=== PATIENT | male | born 1970 | race African-American/Black ===

== ENCOUNTER 2021-05-09 13:05 | Inpatient (IN) | payer OTHER, MEDICARE ==
[2021-05-09 14:05] LABS: Hemoglobin 7.2 g/dL (13.5-17.5); Mean Corpuscular HGB CONC 32.9 g/dL (32.0-36.0); Mean Corpuscular Hemoglobin 32.1 pg (27.0-33.0); Mean Corpuscular Volume 97.8 fl (81.2-95.1); Mean Platelet Volume 11.3 fl (7.4-10.4); Platelet Count 145 10x3/uL (150-450); RBC Distribution Width 16.3 % (11.5-14.5); Red Blood Cell (RBC) Count 2.24 10x6/uL (4.32-5.72); White Blood Cell (WBC) Count 7.5 10x3/uL (3.5-10.5)
[2021-05-09 14:27] LABS: Anion Gap 15 mmol/L (10-20); BUN (Urea Nitrogen) 78 mg/dL (8.4-25.7); Calc. Creatinine Clearance 0 mL/min (70-130); Calcium 6.4 mg/dL (7.8-10.44); Chloride 120 mmol/L (98-107); Glucose 116 mg/dL (70-105); Potassium 4.8 mmol/L (3.5-5.1); Sodium 138 mmol/L (136-145)
[2021-05-09 14:29] LABS: Carbon Dioxide 8 mmol/L (22-29)
[2021-05-09 14:42] LABS: CKMB 6.8 ng/mL (0-6.6)
[2021-05-09 14:53] LABS: MDiff Complete? YES
[2021-05-09 14:57] LABS: Myelocyte 1 % (0-0); Nucleated RBC 2 % (0)
[2021-05-09 15:07] LABS: Band 2 % (5-11); Eosinophils 1 % (0-10); Lymphocytes 4 % (21-51); Neutrophil 92 % (42-75); Reactive Lymphocytes 1 % (0-10)
[2021-05-09 15:10] LABS: Vacuoles SLIGHT
[2021-05-09] MEDS ORDERED: Loperamide HCl 2 MG CAP PO PRN (16:00)
[2021-05-09] MEDS ORDERED: Ondansetron PF 4 MG/2 ML Vial IVP PRN (16:00)
[2021-05-09 17:17] LABS: Troponin I 0.029 ng/mL (< 0.028)
[2021-05-09] MEDS ORDERED: Prevnar 13-Val Conj/PF 0.5 ML SYRINGE IM ONE (17:45)
[2021-05-09] MEDS ORDERED: FLU VACC QS2021-22(6MOS UP)/PF 60 MCG/0.5 ML SYRINGE IM ONE (17:45)
[2021-05-09] MEDS: Sodium Bicarbonate 50 MEQ in Sodium Chloride 0.45% 1,000 ML IV SCH ×2 (17:47→18:23)
[2021-05-09] MEDS ORDERED: Sodium Bicarbonate 150 MEQ in Dextrose 5% in Water 1,000 ML IV SCH (19:15)
[2021-05-09] MEDS: Loperamide HCl 2 MG CAP PO SCH (20:00)
[2021-05-09] MEDS: Sodium Bicarbonate 75 MEQ, Admixture Fee 1 EACH in Dextrose 5% in Water 500 ML IV SCH (20:02)
[2021-05-09] MEDS: Albumin 25% 25 GM/100 ML BOT IVPB SCH (20:03)
[2021-05-09] MEDS: Heparin 5,000 UNITS/ML VIAL SC SCH (20:03)
[2021-05-09 20:36] LABS: Phosphorus 2.9 mg/dL (2.3-4.7)
[2021-05-09] MEDS: Pancrelipase DR 12,000 1 CAP PO SCH (20:36)
[2021-05-09 20:38] LABS: CK (CPK) 982 U/L (30-200); Magnesium 1.3 mg/dL (1.6-2.6)
[2021-05-10] MEDS: Sodium Bicarbonate 75 MEQ, Admixture Fee 1 EACH in Dextrose 5% in Water 500 ML IV SCH ×9 (00:16→23:47)
[2021-05-10] MEDS: Loperamide HCl 2 MG CAP PO SCH ×4 (00:19→18:17)
[2021-05-10] MEDS: Albumin 25% 25 GM/100 ML BOT IVPB SCH ×3 (00:19→11:53)
[2021-05-10] MEDS: Acetaminophen 325 MG TAB PO PRN ×2 (00:47→11:52)
[2021-05-10 04:00] LABS: Hemoglobin 6.2 g/dL (13.5-17.5); Mean Corpuscular HGB CONC 33.7 g/dL (32.0-36.0); Mean Corpuscular Hemoglobin 31.8 pg (27.0-33.0); Mean Corpuscular Volume 94.4 fl (81.2-95.1); Mean Platelet Volume 11.3 fl (7.4-10.4); Platelet Count 145 10x3/uL (150-450); RBC Distribution Width 15.7 % (11.5-14.5); Red Blood Cell (RBC) Count 1.95 10x6/uL (4.32-5.72); White Blood Cell (WBC) Count 7.2 10x3/uL (3.5-10.5)
[2021-05-10 04:14] LABS: MDiff Complete? YES
[2021-05-10 04:16] LABS: Anion Gap 15 mmol/L (10-20); BUN (Urea Nitrogen) 68 mg/dL (8.4-25.7); Calc. Creatinine Clearance 9 mL/min (70-130); Calcium 7.1 mg/dL (7.8-10.44); Carbon Dioxide 12 mmol/L (22-29); Chloride 119 mmol/L (98-107); Potassium 3.5 mmol/L (3.5-5.1); Sodium 142 mmol/L (136-145)
[2021-05-10 04:22] LABS: Glucose 33 mg/dL (70-105)
[2021-05-10 04:23] LABS: Band 44 % (5-11); Lymphocytes 4 % (21-51); Metamyelocyte 2 % (0-0); Monocytes 1 % (0-10); Neutrophil 49 % (42-75); Nucleated RBC 3 % (0)
[2021-05-10 04:27] LABS: Reflex for Review?? YES
[2021-05-10 04:29] LABS: Platelet Morphology Comment Appears Adequate
[2021-05-10 04:30] LABS: RBC Morphology Normal
[2021-05-10] MEDS ORDERED: Dextrose 50% Abboject 50 ML SYRINGE SLOW IVP SCH (04:30)
[2021-05-10] MEDS: Heparin 5,000 UNITS/ML VIAL SC SCH ×3 (07:43→20:48)
[2021-05-10] MEDS: Tamsulosin HCl 0.4 MG CAP PO SCH (08:26)
[2021-05-10] MEDS: Pancrelipase DR 12,000 1 CAP PO SCH ×3 (08:26→16:33)
[2021-05-10] MEDS ORDERED: Opium Tincture 10% (1ml Charge) PO SCH ×2 (09:00→13:00)
[2021-05-10] MEDS ORDERED: Magnesium Sulfate 4 GM in Sodium Chloride 0.9% 250 ML 250 ML IVPB SCH (09:00)
[2021-05-10 09:49] LABS: Bilirubin Neg (Negative); Blood, Urine 250 (Negative); Clarity Clear (Clear); Glucose, Urine (Dipstick) Normal (Negative); Ketone, Urine Negative (Negative); Leukocyte 500 (Negative); Nitrite Positive (Negative); Protein, Urine (Dipstick) 100 mg/dl (Neg-Trace); Urobilinogen Normal mg/dL (Less than 2)
[2021-05-10] MEDS: Potassium Bicarbonate/Cit Ac 20 MEQ TAB PO SCH ×2 (10:04→20:47)
[2021-05-10 10:11] LABS: Bacteria/HPF 3+ HPF (None Seen); Squamous Epithelial 0-3 HPF (0-3); Yeast-Budding 2+ HPF (None Seen); Yeast-Hyphae 1+ HPF (None Seen)
[2021-05-10 10:13] LABS: Creatinine, Urine 54.17 mg/dL (63-166); Urine Culture Reflex Yes Yes
[2021-05-10] MEDS ORDERED: Dextrose 50% Abboject 50 ML SYRINGE ONE (12:08)
[2021-05-10] MEDS ORDERED: Aluminum & Magnesium Hydroxide 60 ML, diphenhydrAMINE 150 MG, Lidocaine 2% Viscous Solu... SSW PRN (13:04)
[2021-05-10] MEDS ORDERED: Dextrose 5% in Water 1,000 ML IV PRN (13:04)
[2021-05-10] MEDS ORDERED: Amino Acids 4.25 %/Dextrose 5% 2,000 ML IV SCH (13:30)
[2021-05-10] MEDS: HYDROcodone/Acetaminophen 5/325 mg Tablet PO PRN ×2 (16:52→23:17)
[2021-05-11] MEDS: Loperamide HCl 2 MG CAP PO SCH ×4 (02:01→20:58)
[2021-05-11] MEDS: Sodium Bicarbonate 75 MEQ, Admixture Fee 1 EACH in Dextrose 5% in Water 500 ML IV SCH ×5 (02:02→20:58)
[2021-05-11] MEDS: Dextrose 50% Abboject 50 ML SYRINGE SLOW IVP PRN (02:45)
[2021-05-11] MEDS ORDERED: Dextrose 5% in Water 1,000 ML IV PRN (02:50)
[2021-05-11 04:08] LABS: Mean Corpuscular HGB CONC 34.2 g/dL (32.0-36.0); Mean Corpuscular Volume 90.7 fl (81.2-95.1); Mean Platelet Volume 9.7 fl (7.4-10.4); Platelet Count 148 10x3/uL (150-450); RBC Distribution Width 17.3 % (11.5-14.5); Red Blood Cell (RBC) Count 2.58 10x6/uL (4.32-5.72); White Blood Cell (WBC) Count 13.4 10x3/uL (3.5-10.5)
[2021-05-11 04:16] LABS: Anion Gap 20 mmol/L (10-20); BUN (Urea Nitrogen) 66 mg/dL (8.4-25.7); Calc. Creatinine Clearance 9 mL/min (70-130); Calcium 7.4 mg/dL (7.8-10.44); Carbon Dioxide 15 mmol/L (22-29); Chloride 108 mmol/L (98-107); Glucose 86 mg/dL (70-105); Sodium 140 mmol/L (136-145)
[2021-05-11 04:23] LABS: MDiff Complete? YES
[2021-05-11 04:32] LABS: Band 47 % (5-11); Eosinophils 1 % (0-10); Lymphocytes 5 % (21-51); Metamyelocyte 6 % (0-0); Monocytes 1 % (0-10); Neutrophil 40 % (42-75); Nucleated RBC 4 % (0)
[2021-05-11 04:34] LABS: Platelet Morphology Comment Appears Adequate
[2021-05-11 04:35] LABS: RBC Morphology Normal
[2021-05-11 04:57] VITALS: BMI 17.2
[2021-05-11] MEDS ORDERED: Potassium Chloride 20 MEQ TAB PO SCH (05:30)
[2021-05-11 06:01] LABS: Phosphorus 2.4 mg/dL (2.3-4.7)
[2021-05-11] MEDS: Tamsulosin HCl 0.4 MG CAP PO SCH (10:41)
[2021-05-11] MEDS: Pancrelipase DR 12,000 1 CAP PO SCH ×3 (10:41→17:49)
[2021-05-11] MEDS: Heparin 5,000 UNITS/ML VIAL SC SCH (10:41)
[2021-05-11] MEDS ORDERED: Norepinephrine 8 MG/0.9% NS 250 ML ONE (11:59)
[2021-05-11 12:47] LABS: Actual Bicarbonate (HCO3a) 15.5 mEq/L (22-28); Base Excess (BEa) -11.1 mEq/L (-2.0 to +3.0); CO2 Tension 38.4 mmHg (35.0-45.0); Calcium, Ionized (arterial) 1.08 mmol/L (1.12-1.30); Carboxyhemoglobin (COHb) 0.7 gm% (0.0-3.0); Hemoglobin (Hb) 5.8 g/dL (14.0-18.0); O2 Tension (PaO2), arterial 63.6 mmHg (80.0-100.0); Puncture Site RRA; pH, Arterial 7.22 (7.35-7.45)
[2021-05-11 12:47] LABS: Hemoglobin 6.8 g/dL (13.5-17.5); Mean Corpuscular HGB CONC 33.5 g/dL (32.0-36.0); Mean Corpuscular Hemoglobin 31.6 pg (27.0-33.0); Mean Corpuscular Volume 94.4 fl (81.2-95.1); Mean Platelet Volume 10.9 fl (7.4-10.4); Platelet Count 170 10x3/uL (150-450); RBC Distribution Width 17.9 % (11.5-14.5); Red Blood Cell (RBC) Count 2.15 10x6/uL (4.32-5.72); White Blood Cell (WBC) Count 19.1 10x3/uL (3.5-10.5)
[2021-05-11 12:57] LABS: Lactic Acid 9.1 mmol/L (0.5-2.2)
[2021-05-11 12:59] LABS: ALT (SGPT) 54 U/L (8-55); AST (SGOT) 420 U/L (5-34); Albumin 1.9 g/dL (3.5-5.0); Alkaline Phosphatase 387 U/L (40-110); Anion Gap 21 mmol/L (10-20); BUN (Urea Nitrogen) 68 mg/dL (8.4-25.7); Bilirubin, Total 0.3 mg/dL (0.2-1.2); Calc. Creatinine Clearance 9 mL/min (70-130); Calcium 7.3 mg/dL (7.8-10.44); Carbon Dioxide 17 mmol/L (22-29); Chloride 105 mmol/L (98-107); Globulin 2.9 g/dL (2.4-3.5); Potassium 3.9 mmol/L (3.5-5.1); Protein, Total 4.8 g/dL (6.0-8.3); Sodium 139 mmol/L (136-145)
[2021-05-11 13:00] LABS: Troponin I 0.075 ng/mL (< 0.028)
[2021-05-11] MEDS ORDERED: Lorazepam 2 MG/ML VIAL SLOW IVP PRN (13:00)
[2021-05-11] MEDS ORDERED: Fentanyl BOLUS 250 ML IVPB PRN (13:00)
[2021-05-11] MEDS ORDERED: Morphine 2 MG/ML VIAL SLOW IVP PRN (13:00)
[2021-05-11] MEDS ORDERED: Propofol BOLUS 1,000 MG/100 ML VIAL IV PRN (13:00)
[2021-05-11] MEDS ORDERED: DISCONTINUE PREVIOUS NARCOTIC PAIN MEDICATIONS AND BENZODIAZEPINES FS SCH (13:00)
[2021-05-11 13:05] LABS: Glucose 22 mg/dL (70-105)
[2021-05-11 13:11] LABS: MDiff Complete? YES
[2021-05-11 13:16] LABS: Band 24 % (5-11); Eosinophils 2 % (0-10); Lymphocytes 24 % (21-51); Metamyelocyte 2 % (0-0); Monocytes 1 % (0-10); Neutrophil 46 % (42-75); Nucleated RBC 2 % (0)
[2021-05-11 13:24] LABS: Ovalocytes SLIGHT = 2-5 cells (100X) (0-1/hpf)
[2021-05-11 13:25] LABS: Large Platelets SLIGHT; Platelet Morphology Comment Appears Adequate
[2021-05-11] MEDS ORDERED: Meropenem 1 GM in Sodium Chloride 0.9% 100 ML IVPB SCH ×2 (13:45→14:00)
[2021-05-11] MEDS ORDERED: Vancomycin 1 GM in Premix Bag 1 BAG IVPB SCH (14:00)
[2021-05-11] MEDS ORDERED: Vancomycin HCl 1 GM in Sodium Chloride 0.9% 250 ML 250 ML IVPB SCH (14:15)
[2021-05-11] MEDS: Potassium Phosphate 30 MMOL, Admixture Fee 1 EACH in Sodium Chloride 0.9% 250 ML 250 ML IVPB SCH ×2 (15:00→20:57)
[2021-05-11 15:15] LABS: CKMB 5.7 ng/mL (0-6.6)
[2021-05-11] MEDS: Albumin 25% 25 GM/100 ML BOT IVPB SCH ×2 (15:22→15:47)
[2021-05-11] MEDS: Meropenem 500 MG in Sodium Chloride 0.9% 100 ML IVPB SCH (21:07)
[2021-05-12] MEDS: Albumin 25% 25 GM/100 ML BOT IVPB SCH (00:12)
[2021-05-12] MEDS: Dextrose 50% Abboject 50 ML SYRINGE SLOW IVP PRN ×2 (00:13→08:21)
[2021-05-12] MEDS: Loperamide HCl 2 MG CAP PO SCH ×4 (00:22→21:29)
[2021-05-12] MEDS ORDERED: Dextrose 10% in Water 1,000 ML IV SCH ×2 (00:30→21:30)
[2021-05-12] MEDS: fentaNYL Citrate-0.9 % NaCl/PF 100 ML IVPB SCH ×2 (00:52→16:27)
[2021-05-12] MEDS: Sodium Bicarbonate 75 MEQ, Admixture Fee 1 EACH in Dextrose 5% in Water 500 ML IV SCH ×5 (01:21→17:15)
[2021-05-12] MEDS: Propofol 1,000 MG/100 ML VIAL IV PRN ×2 (01:51→21:38)
[2021-05-12 03:32] LABS: Hemoglobin 6.8 g/dL (13.5-17.5); Mean Corpuscular HGB CONC 34.7 g/dL (32.0-36.0); Mean Corpuscular Hemoglobin 31.1 pg (27.0-33.0); Mean Corpuscular Volume 89.5 fl (81.2-95.1); Mean Platelet Volume 11.4 fl (7.4-10.4); Red Blood Cell (RBC) Count 2.19 10x6/uL (4.32-5.72); White Blood Cell (WBC) Count 6.2 10x3/uL (3.5-10.5)
[2021-05-12 03:33] LABS: MDiff Complete? YES; Platelet Count 86 10x3/uL (150-450)
[2021-05-12 03:40] LABS: Band 29 % (5-11); Eosinophils 4 % (0-10); Lymphocytes 7 % (21-51); Metamyelocyte 10 % (0-0); Monocytes 1 % (0-10); Myelocyte 2 % (0-0); Neutrophil 47 % (42-75); Nucleated RBC 5 % (0)
[2021-05-12 03:41] LABS: Platelet Morphology Comment Appears Decreased
[2021-05-12 03:42] LABS: RBC Morphology Normal
[2021-05-12 04:15] LABS: Anion Gap 23 mmol/L (10-20); BUN (Urea Nitrogen) 62 mg/dL (8.4-25.7); CK (CPK) 773 U/L (30-200); Calc. Creatinine Clearance 10 mL/min (70-130); Carbon Dioxide 19 mmol/L (22-29); Chloride 101 mmol/L (98-107); Glucose 94 mg/dL (70-105); Potassium 3.8 mmol/L (3.5-5.1); Sodium 139 mmol/L (136-145)
[2021-05-12] MEDS: Norepinephrine 8 MG/0.9% NS 250 ML IVPB SCH ×2 (04:56→23:37)
[2021-05-12] MEDS ORDERED: Calcium Gluc 4.6 MEQ/10 ML (100 MG/ML) SLOW IVP SCH (05:00)
[2021-05-12 08:55] LABS: Actual Bicarbonate (HCO3a) 22.6 mEq/L (22-28); Base Excess (BEa) -5.1 mEq/L (-2.0 to +3.0); Calcium, Ionized (arterial) 0.87 mmol/L (1.12-1.30); Carboxyhemoglobin (COHb) 0.3 gm% (0.0-3.0); Hemoglobin (Hb) 8.6 g/dL (14.0-18.0); O2 Tension (PaO2), arterial 66.3 mmHg (80.0-100.0); Potassium - ABG Lab 3.6 mmol/L (3.70-5.30); Puncture Site LRA; pH, Arterial 7.22 (7.35-7.45)
[2021-05-12] MEDS ORDERED: Pantoprazole 40 MG GRANULES PACKET PER TUBE SCH (09:00)
[2021-05-12] MEDS: Pancrelipase DR 12,000 1 CAP PO SCH ×3 (09:23→17:49)
[2021-05-12] MEDS: Tamsulosin HCl 0.4 MG CAP PO SCH (09:23)
[2021-05-12] MEDS: Pantoprazole 80 MG, Admixture Fee 1 EACH in Sodium Chloride 0.9% 100 ML IVPB SCH ×2 (10:53→20:09)
[2021-05-12 10:59] LABS: Hemoglobin 8.2 g/dL (13.5-17.5); Mean Corpuscular HGB CONC 33.9 g/dL (32.0-36.0); Mean Corpuscular Hemoglobin 30.4 pg (27.0-33.0); Mean Corpuscular Volume 89.6 fl (81.2-95.1); Mean Platelet Volume 9.6 fl (7.4-10.4); Platelet Count 88 10x3/uL (150-450); RBC Distribution Width 16.7 % (11.5-14.5); White Blood Cell (WBC) Count 5.1 10x3/uL (3.5-10.5)
[2021-05-12 11:16] LABS: INR-International Normal Ratio 3.9; Prothrombin Time 40.8 sec (9.5-12.1)
[2021-05-12] MEDS ORDERED: Vancomycin HCl 1 GM in Sodium Chloride 0.9% 250 ML 250 ML IVPB PRN (14:00)
[2021-05-12 14:19] LABS: Vancomycin, Trough 9.8 ug/mL
[2021-05-12] MEDS ORDERED: Vancomycin 1.5 GRAM/300 ML BAG 1.5 GM in Premix Bag 1 BAG IVPB SCH (16:00)
[2021-05-12] MEDS ORDERED: Phytonadione 10 MG/ML AMP SLOW IVP SCH (16:30)
[2021-05-12] MEDS: Meropenem 500 MG in Sodium Chloride 0.9% 100 ML IVPB SCH (21:31)
[2021-05-12 22:19] VITALS: TEMP 97.7
[2021-05-13 00:54] LABS: Hemoglobin 6.9 g/dL (13.5-17.5); Mean Corpuscular HGB CONC 33.2 g/dL (32.0-36.0); Mean Corpuscular Hemoglobin 30.1 pg (27.0-33.0); Mean Corpuscular Volume 90.9 fl (81.2-95.1); Mean Platelet Volume 10.7 fl (7.4-10.4); Platelet Count 89 10x3/uL (150-450); RBC Distribution Width 17.4 % (11.5-14.5); Red Blood Cell (RBC) Count 2.19 10x6/uL (4.32-5.72); White Blood Cell (WBC) Count 3.6 10x3/uL (3.5-10.5)
[2021-05-13 01:11] LABS: INR-International Normal Ratio 2.2; MDiff Complete? YES; PTT 68.3 sec (22.0-33.0)
[2021-05-13] MEDS: Loperamide HCl 2 MG CAP PO SCH (01:46)
[2021-05-13 01:59] VITALS: BP 79/51
[2021-05-13] MEDS: Sodium Bicarbonate 75 MEQ, Admixture Fee 1 EACH in Dextrose 5% in Water 500 ML IV SCH (03:29)
[2021-05-13 04:14] LABS: Band 32 % (5-11); Eosinophils 10 % (0-10); Lymphocytes 6 % (21-51); Monocytes 4 % (0-10); Neutrophil 41 % (42-75); Nucleated RBC 4 % (0)
[2021-05-13 04:17] LABS: Anion Gap 25 mmol/L (10-20); BUN (Urea Nitrogen) 58 mg/dL (8.4-25.7); Calc. Creatinine Clearance 12 mL/min (70-130); Calcium 4.9 mg/dL (7.8-10.44); Carbon Dioxide 19 mmol/L (22-29); Chloride 95 mmol/L (98-107); Glucose 74 mg/dL (70-105); Potassium 3.6 mmol/L (3.5-5.1); Sodium 135 mmol/L (136-145)
[2021-05-13] MEDS ORDERED: CALCIUM CHLORIDE IVPB SCH (08:30)
[2021-05-13] MEDS ORDERED: Albumin 25% 25 GM/100 ML BOT IVPB SCH (08:30)
[2021-05-13] MEDS ORDERED: SODIUM CHLORIDE 0.9% IVPB SCH (08:30)
== END 2021-05-13 11:40 | disposition expired | DRG 974 ==
LOC: CSHERS 13:05 → CSHICU 16:18 → CSHIMCU 05-12 12:22
PROVIDERS: ADMIT Internal Medicine; ATTEND Internal Medicine
PROC: 30233L1 Transfusion of Nonautologous Fresh Plasma into Peripheral Vein, Percutaneous Approach (ICD-10-PCS; principal; 2021-05-09)
PROC: 30233N1 Transfusion of Nonautologous Red Blood Cells into Peripheral Vein, Percutaneous Approach (ICD-10-PCS; 2021-05-09)
PROC: 30233K1 Transfusion of Nonautologous Frozen Plasma into Peripheral Vein, Percutaneous Approach (ICD-10-PCS; 2021-05-09)
PROC: 3E033XZ Introduction of Vasopressor into Peripheral Vein, Percutaneous Approach (ICD-10-PCS; 2021-05-11)
PROC: 0BH17EZ Insertion of Endotracheal Airway into Trachea, Via Natural or Artificial Opening (ICD-10-PCS; 2021-05-11)
PROC: 5A1945Z Respiratory Ventilation, 24-96 Consecutive Hours (ICD-10-PCS; 2021-05-11)
PROC: 5A12012 Performance of Cardiac Output, Single, Manual (ICD-10-PCS; 2021-05-13)
DX: A41.9 Sepsis, unspecified organism (principal); R65.21 Severe sepsis with septic shock; B20 Human immunodeficiency virus [HIV] disease; E43 Unspecified severe protein-calorie malnutrition; Z66 Do not resuscitate; J15.9 Unspecified bacterial pneumonia; J96.01 Acute respiratory failure with hypoxia; G93.41 Metabolic encephalopathy; D65 Disseminated intravascular coagulation [defibrination syndrome]; N17.9 Acute kidney failure, unspecified; E87.2 Acidosis; Z68.1 Body mass index [BMI] 19.9 or less, adult; K92.2 Gastrointestinal hemorrhage, unspecified; M62.82 Rhabdomyolysis; D62 Acute posthemorrhagic anemia; N18.4 Chronic kidney disease, stage 4 (severe); E87.5 Hyperkalemia; E03.9 Hypothyroidism, unspecified; K52.9 Noninfective gastroenteritis and colitis, unspecified; E86.0 Dehydration; E88.09 Other disorders of plasma-protein metabolism, not elsewhere classified; K12.1 Other forms of stomatitis; N49.3 Fournier gangrene; R62.7 Adult failure to thrive; D63.1 Anemia in chronic kidney disease; E83.51 Hypocalcemia; I46.8 Cardiac arrest due to other underlying condition; E83.42 Hypomagnesemia; Z79.899 Other long term (current) drug therapy; Z93.3 Colostomy status
CPT/HCPCS: 36415; 36416; 36430; 36600; 71045; 74018; 80048; 80202; 81001; 82040; 82533; 82550; 82553; 82570; 82805; 83605; 83735; 84100; 84156; 84300; 84484; 85025; 85060; 85610; 85730; 86850; 86900; 86901; 87040; 87077; 87086; 87103; 87149; 87186; 93005; 93010; 93306; 94002; 94003; 94760; C9113; J0610; J1644; J2185; J2597; J2704; J3370; J3430; J3475; J3490; J7050; J7070; P9016; P9047; P9059